=== PATIENT | female | born 1995 | race African-American/Black ===

== ENCOUNTER 2020-07-28 12:45 | Observation (INO) | payer MEDICAID ==
[~2020-07-28] VITALS: Ht 167.6 cm; Wt 68.0 kg
[2020-07-28] MEDS ORDERED: LACTATED RINGER'S 1,000 ML IV SCH (13:30)
[2020-07-28] MEDS: TERBUTALINE SULFATE 1 MG/ML 1ML VIAL SC SCH ×2 (13:38→14:05)
[2020-07-28 15:39] LABS: Alcohol, Urine < 3.0 mg/dL (0-10); Amphetamine Screen, Urine NEGATIVE (NEGATIVE); Barbiturate Scree,Urine NEGATIVE (NEGATIVE); Benzodiazephine Screen, Urine NEGATIVE (NEGATIVE); Cannabinoid Screen, Urine NEGATIVE (NEGATIVE); Cocaine Screen, Urine NEGATIVE (NEGATIVE); Opiate Scree,Urine NEGATIVE (NEGATIVE); Phencyclidine Screen, Urine NEGATIVE (NEGATIVE)
== END 2020-07-28 15:35 | disposition home or self-care (01) ==
LOC: LDRP 12:45 → EDBD 12:45
PROVIDERS: ADMIT Obstetrics & Gynecology; ATTEND Obstetrics & Gynecology
DX: O62.9 Abnormality of forces of labor, unspecified (principal); Z3A.36 36 weeks gestation of pregnancy; Z79.899 Other long term (current) drug therapy
CPT/HCPCS: 59025; 80307; 81002; 84112; 94760; 96360; 96372; G0378; J3105; Q0114